=== PATIENT | female | born 1990 | race Caucasian/White ===

== ENCOUNTER 2017-03-27 18:03 | Observation (INO) | payer OTHER ==
[~2017-03-27] VITALS: Ht 170.2 cm; Wt 72.0 kg
[2017-03-27] MEDS ORDERED: IPRATROPIUM 0.02% SOLN 0.5MG/2.5 ML NEB As Ordered ONE (18:14)
[2017-03-27] MEDS ORDERED: ALBUTEROL SULFATE 2.5 MG/0.5 ML INH NEB SOLN As Ordered ONE (18:14)
[2017-03-27] MEDS ORDERED: diphenhydrAMINE INJ 50MG/ML VIAL (J1200) As Ordered ONE (18:14)
[2017-03-27] MEDS ORDERED: TOPI100T9 PO (18:33)
[2017-03-27] MEDS ORDERED: REGL10TA6 PO (18:37)
[2017-03-27] MEDS ORDERED: KETO10TAB PO (18:38)
[2017-03-27] MEDS ORDERED: FAMOTIDINE IV BAG 20 MG in APPROPRIATE DILUENT 1 EA IV ONE (19:30)
[2017-03-27] MEDS ORDERED: methylPREDNISolone INJ 125 MG/2 ML VIAL (J2930) IV ONE (19:30)
[2017-03-27 21:03] LABS: BASO # 0.1 K/mm3 (0.0-0.2); BASO % 0.9 % (0.0-1.0); EOS # 0.1 K/mm3 (0.0-0.50); EOS % 1.5 % (0.0-3.0); LARGE UNSTAINED CELL # 0.1 K/mm3 (0.0-0.4); LARGE UNSTAINED CELL % 1.2 % (0.0-4.0); LYMPH # 2.4 K/mm3 (1.5-6.5); LYMPH % 26.5 % (24.0-44.0); MEAN CORPUSCULAR HEMOGLOBIN 32.4 pg (27.0-33.0); MEAN CORPUSCULAR HGB CONC 34.7 g/dl (32.0-36.5); MEAN CORPUSCULAR VOLUME 93.5 fl (80.0-96.0); MONO # 0.4 K/mm3 (0.0-0.8); MONO % 4.9 % (0.0-5.0); NEUTROPHILS # 5.8 K/mm3 (1.8-7.7); PLATELET COUNT, AUTOMATED 225 k/mm3 (150-450); RED CELL DISTRIBUTION WIDTH 11.8 % (11.5-14.5); WHITE BLOOD COUNT 8.8 K/mm3 (4.0-10.0)
[2017-03-27] MEDS ORDERED: diphenhydrAMINE INJ 50MG/ML VIAL (J1200) IV STA (21:08)
[2017-03-27 22:10] LABS: ERYTHROCYTE SEDIMENTATION RATE 2 mm/hr (0-20)
[2017-03-27 22:52] LABS: CONTROL LINE HCG INT CTR LINE PRESENT
[2017-03-27 23:03] LABS: ALBUMIN/GLOBULIN RATIO 1.14 (1.00-1.93); ALKALINE PHOSPHATASE 57 U/L (45-117); ALT/SGPT 17 U/L (12-78); ANION GAP 10 MEQ/L (8-16); AST/SGOT 8 U/L (15-37); BILIRUBIN,DIRECT 0.1 MG/DL (0.0-0.2); BILIRUBIN,TOTAL 0.5 MG/DL (0.2-1.0); BLOOD UREA NITROGEN 13 MG/DL (7-18); CALCIUM LEVEL 8.3 MG/DL (8.5-10.1); CARBON DIOXIDE LEVEL 18 MEQ/L (21-32); CHLORIDE LEVEL 114 MEQ/L (98-107); GLOMERULAR FILTRATION RATE > 60.0 (>60); GLUCOSE, FASTING 86 MG/DL (70-105); POTASSIUM SERUM 3.9 MEQ/L (3.5-5.1); SODIUM LEVEL 142 MEQ/L (136-145); TOTAL PROTEIN 7.5 GM/DL (6.4-8.2)
[2017-03-28] MEDS ORDERED: ACETAMINOPHEN TAB 650MG DOSE (2X325MG) PO PRN (00:15)
[2017-03-28] MEDS ORDERED: ONDANSETRON 4MG/2ML VIAL (J2405) IV PRN (00:15)
[2017-03-28] MEDS ORDERED: NEXP1IMP SC (00:18)
[2017-03-28] MEDS ORDERED: TYLE1TAB5 PO (00:18)
[2017-03-28] MEDS ORDERED: FROV2.5T6 PO (00:18)
[2017-03-28] MEDS ORDERED: METO10TA2 PO (00:18)
[2017-03-28] MEDS ORDERED: TYLETAB14 PO (00:18)
[2017-03-28] MEDS ORDERED: IBUPOTC PO (00:18)
[2017-03-28] MEDS ORDERED: EPIP0.3I2 INJ (00:18)
[2017-03-28] MEDS ORDERED: TRIA1CR TOP (00:18)
[2017-03-28] MEDS ORDERED: CLAR1TAB2 PO (00:18)
[2017-03-28] MEDS ORDERED: TRIAMCINOLONE ACET 0.1% CREAM 15 GM TOP PRN (00:45)
[2017-03-28] MEDS ORDERED: METOCLOPRAMIDE 10 MG TAB PO PRN (00:45)
[2017-03-28] MEDS ORDERED: ACETAMINOPH W/CODEINE #3 TAB UD PO PRN (00:45)
[2017-03-28] MEDS ORDERED: KETOROLAC TROMETHAMINE 10 MG TAB PO PRN (00:45)
[2017-03-28 02:05] VITALS: BP 105/51
[2017-03-28] MEDS ORDERED: SLF 3 ML SYR IV PRN (02:30)
[2017-03-28 03:23] VITALS: BP 119/67
[2017-03-28 05:26] LABS: BASO % 0.2 % (0.0-1.0); EOS % 0.1 % (0.0-3.0); LARGE UNSTAINED CELL % 0.3 % (0.0-4.0); LYMPH # 0.9 K/mm3 (1.5-6.5); LYMPH % 10.5 % (24.0-44.0); MEAN CORPUSCULAR HEMOGLOBIN 32.9 pg (27.0-33.0); MEAN CORPUSCULAR HGB CONC 35.2 g/dl (32.0-36.5); MEAN CORPUSCULAR VOLUME 93.5 fl (80.0-96.0); MONO # 0.1 K/mm3 (0.0-0.8); MONO % 1.1 % (0.0-5.0); NEUTROPHILS # 7.2 K/mm3 (1.8-7.7); NEUTROPHILS % 87.7 % (36.0-66.0); PLATELET COUNT, AUTOMATED 256 k/mm3 (150-450); RED CELL DISTRIBUTION WIDTH 11.8 % (11.5-14.5); WHITE BLOOD COUNT 8.2 K/mm3 (4.0-10.0)
[2017-03-28 05:54] LABS: ANION GAP 7 MEQ/L (8-16); BLOOD UREA NITROGEN 15 MG/DL (7-18); CALCIUM LEVEL 8.7 MG/DL (8.5-10.1); CARBON DIOXIDE LEVEL 21 MEQ/L (21-32); CHLORIDE LEVEL 111 MEQ/L (98-107); CREATININE FOR GFR 1.12 MG/DL (0.55-1.02); GLOMERULAR FILTRATION RATE > 60.0 (>60); GLUCOSE, FASTING 144 MG/DL (70-105); MAGNESIUM LEVEL 2.3 MG/DL (1.8-2.4); POTASSIUM SERUM 4.4 MEQ/L (3.5-5.1); SODIUM LEVEL 139 MEQ/L (136-145)
[2017-03-28] MEDS ORDERED: SLF 3 ML SYR IV SCH (06:00)
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
[2017-03-28 08:00] VITALS: BP 122/67
[2017-03-28] MEDS ORDERED: predniSONE 20 MG TAB PO SCH (09:00)
[2017-03-28] MEDS ORDERED: diphenhydrAMINE 25 MG CAP PO SCH (09:00)
[2017-03-28] MEDS ORDERED: HEPARIN SOD (PORCINE) 5000 UNITS/ML VIAL SC SCH (09:00)
[2017-03-28] MEDS ORDERED: LORATADINE 10 MG TAB PO SCH (09:00)
[2017-03-28] MEDS ORDERED: FAMOTIDINE 20 MG TAB PO SCH (09:00)
[2017-03-28] MEDS ORDERED: TOPIRAMATE (TopAMAX) 100 MG TAB PO SCH (09:00)
[2017-03-28] MEDS ORDERED: DIPH25CA PO (09:46)
[2017-03-28] MEDS ORDERED: FAMO20TA PO (09:46)
[2017-03-28] MEDS ORDERED: PRED20TA PO (09:46)
--- NOTE | 2017-03-28 17:03 | ECGEPIP ---
Stationary ECG Study [facility] Test Date: 2017-03-28 Pat Name: RENEE GILBERT Department: Room: [place] [address] Gender: F [employer] Judge: PEDRO PABLO : 1990 Requested By: KADEEM Muller Order Number: [id number] Reading MD: Vincent Elizabeth Measurements Intervals [place] Rate: 107 P: 64 OK: 130 QRS: 38 QRSD: 96 T: -7 QT: 341 QTc: 457 Interpretive Statements Sinus tachycardia Incomplete right bundle branch block Nonspecific repolarization abnormalities Comparison tracing not on file Electronically Signed On 03-28-2017 17:02:59 EDT by Vincent Elizabeth
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
== END 2017-03-28 11:12 | disposition home or self-care (01) ==
LOC: EDBD 18:03 → M ED 19:52 → M ED INP 19:53 → M PCU 03-28 02:00
PROVIDERS: ADMIT Hospitalist; ATTEND Internal Medicine Nephrology
DX: T78.2XXA Anaphylactic shock, unspecified, initial encounter (principal); R00.0 Tachycardia, unspecified; G43.909 Migraine, unspecified, not intractable, without status migrainosus; Z87.828 Personal history of other (healed) physical injury and trauma; Z79.899 Other long term (current) drug therapy; Z79.3 Long term (current) use of hormonal contraceptives; Y92.009 Unspecified place in unspecified non-institutional (private) residence as the place of occurrence of the external cause
CPT/HCPCS: 36415; 80048; 80076; 83735; 84703; 85025; 85652; 86140; 93005; 96374; 96375; 99285; J1200; J2930

== ENCOUNTER → 2018-07-18 | Outpatient (CLI) | payer OTHER | LOC: M RAD 13:56 | DX: J34.2 Deviated nasal septum (principal); J31.0 Chronic rhinitis | CPT/HCPCS: 70486 ==